=== PATIENT | male | born 1940 | race Caucasian/White ===

== ENCOUNTER 2024-07-18 17:14 | Observation (INO) ==
[2024-07-18] MEDS ORDERED: IOPAMIDOL 100 ML BOTTLE IV ONE (17:15)
[2024-07-18 18:18] LABS: Basophils # (Auto) 0.04 K/mcL (0.00-0.30); Basophils % (Auto) 0.6 % (0.0-2.0); Eosinophils # (Auto) 0.36 K/mcL (0.00-0.70); Eosinophils % (Auto) 5.2 % (0.0-7.0); Hematocrit 35.3 % (40.1-51.0); Hemoglobin 12.2 g/dL (13.7-17.5); Lymphocytes # (Auto) 1.76 K/mcL (1.50-4.80); Lymphocytes % (Auto) 25.3 % (15.5-49.0); Mean Cell Volume 94.4 fL (80.0-100.0); Mean Corpuscular HGB Conc 34.6 g/dL (31.0-36.0); Monocytes # (Auto) 0.83 K/mcL (0.10-0.90); Monocytes % (Auto) 11.9 % (1.0-12.0); Neutrophils % (Auto) 56.7 % (38.0-78.0); Platelet Count 112 K/mcL (140-440); RBC 3.74 M/mcL (4.63-6.08); Red Cell Distribution Width 13.8 % (11.5-14.5)
[2024-07-18 18:35] LABS: Partial Thromboplastin Time 33.7 sec (20.0-37.0)
[2024-07-18 18:38] LABS: ALT/SGPT < 5 U/L (<40); AST/SGOT 22 U/L (<40); Albumin 3.8 gm/dL (3.2-5.2); Albumin/Globulin Ratio 1.4 (1.0-2.3); Alkaline Phosphatase 86 U/L (39-117); Bilirubin,Total 0.7 mg/dL (0.1-1.0); Blood Urea Nitrogen 17 mg/dL (8-23); Calcium 9.4 mg/dL (8.6-10.4); Carbon Dioxide 22 mmol/L (22-30); Chloride 104 mmol/L (96-108); Globulin 2.8 gm/dL (2.2-3.7); Glomerular Filtration Rate 56; Glucose 169 mg/dL (70-105); Potassium 3.6 mmol/L (3.3-5.1); Sodium 139 mmol/L (133-145)
[2024-07-18] MEDS: ASPIRIN 81 MG TAB.CHEW CHEWED ONE (20:59)
[2024-07-18] MEDS ORDERED: ONDANSETRON 4 MG/2 ML VIAL IV PRN (21:53)
[2024-07-18] MEDS ORDERED: DEXTROSE 50% 50 ML VIAL IV PRN (21:53)
[2024-07-18] MEDS ORDERED: DEXTROSE 31 GM ORAL.SUSP PO PRN (21:53)
[2024-07-18] MEDS ORDERED: ACETAMINOPHEN 325 MG TABLET PO PRN (21:53)
[2024-07-18] MEDS: 0.9 % SODIUM CHLORIDE 10 ML SYRINGE IV SCH (22:31)
[2024-07-19 06:23] LABS: ALT/SGPT < 5 U/L (<40); AST/SGOT 21 U/L (<40); Albumin 3.7 gm/dL (3.2-5.2); Albumin/Globulin Ratio 1.5 (1.0-2.3); Alkaline Phosphatase 78 U/L (39-117); Bilirubin,Direct 0.3 mg/dL (<0.3); Bilirubin,Total 0.7 mg/dL (0.1-1.0); Blood Urea Nitrogen 17 mg/dL (8-23); Calcium 9.3 mg/dL (8.6-10.4); Carbon Dioxide 24 mmol/L (22-30); Chloride 104 mmol/L (96-108); Globulin 2.5 gm/dL (2.2-3.7); Glomerular Filtration Rate 56; Glucose 166 mg/dL (70-105); Lactate Dehydrogenase 155 U/L (135-225); Phosphorous 4.1 mg/dL (2.5-4.5); Sodium 139 mmol/L (133-145); Triglycerides 128 mg/dL (<150); Uric Acid 5.4 mg/dL (2.5-8.0)
[2024-07-19 06:55] LABS: Basophils # (Auto) 0.04 K/mcL (0.00-0.30); Basophils % (Auto) 0.6 % (0.0-2.0); Eosinophils # (Auto) 0.46 K/mcL (0.00-0.70); Eosinophils % (Auto) 6.7 % (0.0-7.0); Hematocrit 34.4 % (40.1-51.0); Hemoglobin 11.6 g/dL (13.7-17.5); Lymphocytes # (Auto) 1.56 K/mcL (1.50-4.80); Lymphocytes % (Auto) 22.6 % (15.5-49.0); Mean Cell Volume 95.8 fL (80.0-100.0); Mean Corpuscular HGB Conc 33.7 g/dL (31.0-36.0); Mean Platelet Volume 11.5 fL (8.8-12.5); Monocytes # (Auto) 0.87 K/mcL (0.10-0.90); Monocytes % (Auto) 12.6 % (1.0-12.0); Neutrophils % (Auto) 57.2 % (38.0-78.0); Platelet Count 99 K/mcL (140-440); RBC 3.59 M/mcL (4.63-6.08); WBC 6.9 K/mcL (4.5-11.0)
[2024-07-19 07:15] LABS: HDL Cholesterol 30 mg/dL (>40); LDL Cholesterol,Calculated 54 mg/dL (<100); Non-HDL Cholesterol 79 mg/dL (<130)
[2024-07-19 07:25] LABS: Estimated Average Glucose(eAG) 166 mg/dL; Hemoglobin A1C 7.4 % Hgb (4.0-6.0)
[2024-07-19] MEDS: INSULIN LISPRO 1 UNIT/0.01 ML UNIT SQ SCH (08:36)
[2024-07-19] MEDS: DOCUSATE SODIUM 100 MG CAPSULE PO SCH (08:36)
[2024-07-19] MEDS: ASPIRIN 81 MG TAB.CHEW CHEWED SCH (08:36)
[2024-07-19] MEDS: ENOXAPARIN 40 MG/0.4 ML SYRINGE SQ SCH (08:36)
[2024-07-19] MEDS ORDERED: NITROGLYCERIN 0.4 MG TAB.SUBL SL PRN (17:09)
[2024-07-19 17:23] LABS: Appearance,Urine Clear (Clear); Bacteria,Urine 0 /hpf (0); Bilirubin,Urine Negative (Negative); Color,Urine Yellow; Culture Indicated,Urine No; Glucose,Urine (UA) 250 mg/dL (Negative); Ketones,Urine Negative (Negative); Leukocyte Esterase,Urine Negative /uL (Negative); Nitrate,Urine Negative (Negative); PH,Urine 5.5 (5.0-9.0); Protein,Urine 100 mg/dL (Negative); Specific Gravity,Urine >= 1.030 (1.000-1.035); Urine Blood Trace-intact ery/mcL (Negative); Urine RBC 0 /hpf (0-3); Urine Squamous Epithelial Cell 0 /hpf (0-4); Urine WBC 0 /hpf (0-4)
[2024-07-19] MEDS: SUCRALFATE 1 GM TABLET PO SCH (21:08)
[2024-07-19] MEDS: PANTOPRAZOLE 40 MG TABLET PO SCH (21:08)
[2024-07-19] MEDS: ATORVASTATIN 40 MG TABLET PO SCH (21:08)
[2024-07-19] MEDS: INSULIN GLARGINE, HUMAN 1 UNIT/0.01 ML SQ SCH (21:08)
[2024-07-19] MEDS: TAMSULOSIN 0.4 MG CAPSULE PO SCH (21:08)
[2024-07-19] MEDS: SENNOSIDES 1 TABLET PO SCH (21:09)
[2024-07-20] MEDS: INSULIN LISPRO 1 UNIT/0.01 ML UNIT SQ SCH (08:00)
[2024-07-20] MEDS: EZETIMIBE 10 MG TABLET PO SCH (08:52)
[2024-07-20] MEDS: FERROUS SULFATE 325 MG TABLET PO SCH (08:52)
[2024-07-20] MEDS: FUROSEMIDE 40 MG TABLET PO SCH (08:52)
[2024-07-20] MEDS ORDERED: ATORVASTATIN 40 MG TABLET PO SCH (09:00)
== END 2024-07-20 16:00 | disposition home or self-care (01) ==
LOC: MEDSUR 17:14 → ED 17:14 → MEDSUR 21:55
PROVIDERS: ADMIT Internal Medicine; ATTEND Internal Medicine